=== PATIENT | male | born 1970 | race Hispanic/Latino ===

== ENCOUNTER 2018-09-30 10:16 | Emergency (ER) | payer BC, OTHER ==
[2018-09-30 10:36] VITALS: BP 120/94; PULSE 74; RESP 18; TEMP 98.9; O2SAT 96
--- NOTE | 2018-09-30 10:56 | ED PDOC ---
Arrival/HPI - General Chief Complaint: Lower Extremity Problem/Injury Time Seen by Provider: 09/30/18 10:40 Historian: Patient - History of Present Illness Narrative History of Present Illness (Text): 48 y/o male with PMH of presents to the ED c/o posterior right knee pain x days. Pt states he stepped off a curb this afternoon and experienced a worsening of the pain and his knee "buckled", pain described as sharp, worse with ambulation and movement. Has not taken any medication for pain today. Denies fevers, chills, redness, bruising, swelling, SOB, chest pain, numbness, paresthesias, or any other associated symptoms. Orthopedics: Dr. Ye Past Medical History - Psychiatric Hx Substance Use: No - Surgical History Hx Gastric Bypass Surgery: Yes Hx Orthopedic Surgery: Yes (Left knee sx) Family/Social History - Physician Review Nursing Documentation Reviewed: Yes Family/Social History: No Known Family HX Smoking Status: Never Smoked Hx Alcohol Use: Yes Frequency of alcohol use: Socially Hx Substance Use: No Allergies/Home Meds Allergies/Adverse Reactions: Allergies No Known Allergies Allergy (Verified 09/30/18 10:36) Review of Systems - Physician Review All systems were reviewed & negative as marked: Yes - Review of Systems Constitutional: Normal Eyes: Normal. absent: Vision Changes ENT: Normal Respiratory: Normal. absent: SOB Cardiovascular: Normal. absent: Chest Pain, Palpitations Gastrointestinal: Normal. absent: Abdominal Pain, Nausea, Vomiting Genitourinary Male: Normal Musculoskeletal: Arthralgias (right knee pain) Skin: Normal. absent: Rash Neurological: Normal. absent: Headache, Dizziness Endocrine: Normal Hemo/Lymphatic: Normal Psychiatric: Normal Physical Exam Vital Signs Reviewed: Yes Vital Signs Temp Pulse Resp BP Pulse Ox 09/30/18 10:34 98.9 F 74 18 120/94 H 96 Temperature: Afebrile Blood Pressure: Normal Pulse: Regular Respiratory Rate: Normal Appearance: Positive for: Well-Appearing, Non-Toxic, Comfortable Pain Distress: None Mental Status: Positive for: Alert and Oriented X 3 - Systems Exam Head: Present: Atraumatic, Normocephalic Pupils: Present: PERRL Extroacular Muscles: Present: EOMI Conjunctiva: Present: Normal Mouth: Present: Moist Mucous Membranes Neck: Present: Normal Range of Motion Respiratory/Chest: Present: Clear to Auscultation, Good Air Exchange. No: Respiratory Distress, Accessory Muscle Use Cardiovascular: Present: Regular Rate and Rhythm, Normal S1, S2, Peripheal Pulses Present. No: Murmurs Back: Present: Normal Inspection Upper Extremity: Present: Normal Inspection, Normal ROM, NORMAL PULSES, Neurovascularly Intact, Capillary Refill < 2s. No: Cyanosis, Edema Lower Extremity: Present: Normal Inspection, NORMAL PULSES, Normal ROM, Tenderness (knee medial joint line, popliteal fossa), Neurovascularly Intact, Capillary Refill < 2 s. No: Edema, Swelling Neurological: Present: GCS=15, CN II-XII Intact, Speech Normal, Motor Func Grossly Intact, Normal Sensory Function, Gait Normal Skin: Present: Warm, Dry, Normal Color. No: Rashes Psychiatric: Present: Alert, Oriented x 3, Normal Insight, Normal Concentration, Normal Affect, Normal Mood Medical Decision Making ED Course and Treatment: Initial Plan: * Right leg venous duplex * Right knee xray * Toradol * Lidoderm patches Patient reports decreased pain after medications US negative for DVT Right knee XR negative for acute fracture or dislocation Patient's knee wrapped in MICHAEL bandage and placed in knee immobilizer by me. Patient refuses crutches at this time. Plan of care and diagnostic testing results discussed with patient, and strict instructions given regarding prescriptions, importance of follow up, and signs to return to Emergency Department, to include leg swelling, difficulty walking, fever, chills, leg redness, or any other new/worsening symptoms. Patient verbalizes understanding of discussion. Patient A&Ox3, ambulating with steady gait, stable for discharge home. - RAD Interpretation Radiology Orders: 09/30/18 10:54 DUPLEX LOWER EXTRM VEIN RIGHT [US] Stat 09/30/18 10:55 KNEE RIGHT 2 VIEWS (AP & LAT) [RAD] Stat Disposition/Present on Arrival - Present on Arrival Any Indicators Present on Arrival: No History of DVT/PE: No History of Uncontrolled Diabetes: No Urinary Catheter: No History of Decub. Ulcer: No History Surgical Site Infection Following: None - Disposition Have Diagnosis and Disposition been Completed?: Yes Diagnosis: Right knee pain Disposition: HOME/ ROUTINE Disposition Time: 11:45 Condition: IMPROVED Discharge Instructions (ExitCare): Knee Pain Additional Instructions: Naproxen daily with food as needed for pain Lidoderm patches 12 hours on, 12 hours off as needed Followup with orthopedics for outpatient imaging Followup with primary within 2 days Return to ER with any new/worsening symptoms Prescriptions: Lidocaine 5% [Lidoderm] 1 ea TD Q12H #10 patch Naproxen [Naprosyn] 500 mg PO DAILY PRN #14 tablet PRN Reason: Pain, Moderate (4-7) Referrals: Mack Ye MD [Staff Provider] - Follow up with primary Forms: [facility] ([place]uan), WORK NOTE
--- NOTE | 2018-09-30 11:42 | RAD ---
Date of service: 09/30/2018 PROCEDURE: Right Knee Radiographs. HISTORY: knee pain COMPARISON: None. FINDINGS: BONES: Normal. No fracture. JOINTS: Normal. No osteoarthritis. JOINT EFFUSION: None. OTHER FINDINGS: None. IMPRESSION: Normal radiographs of the right knee.
[2018-09-30] MEDS ORDERED: Lidocaine 5% Patch TD STA (11:56)
--- NOTE | 2018-09-30 12:32 | US ---
PROCEDURE: Right lower extremity venous US HISTORY: Leg pain and swelling. Evaluate for DVT. PHYSICIAN(S): Jerrell Pathak M.D. TECHNIQUE: Duplex sonography and color-flow Doppler with graded compression were used to evaluate the deep venous system of the right lower extremity. FINDINGS: The visualized deep venous system of the right lower extremity is sonographically normal and compressible. Normal waveforms and augmentation are seen. There is no sonographic evidence for deep venous thrombosis in the visualized segments of the right lower extremity. IMPRESSION: 1. No sonographic evidence for deep venous thrombosis in the visualized segments of the right lower extremity.
== END 2018-09-30 12:09 | disposition home or self-care (01) ==
LOC: ED 10:16
DX: M25.561 Pain in right knee (principal)
CPT/HCPCS: 73560; 93971; 96372; 99283; J1885

== ENCOUNTER 2019-01-14 16:42 | Outpatient (CLI) | payer BC | END 2019-01-14 16:43 | disposition home or self-care (01) | LOC: RAD 16:43 ==